=== PATIENT | male | born 1990 | race Caucasian/White ===

== ENCOUNTER 2017-02-22 16:58 | Emergency (ER) | payer SELFPAY ==
[2017-02-22 17:12] VITALS: BP 109/70; PULSE 80; RESP 16; TEMP 98.3; O2SAT 98; BMI 33.7
--- NOTE | 2017-02-22 17:12 | ED PDOC ---
Arrival/HPI - General Time Seen by Provider: 02/22/17 17:04 Historian: Patient - History of Present Illness Narrative History of Present Illness (Text): 02/22/17 17:08 26yo male present with history of left sided upper toothache. States tooth cracked a month ago and became painful recently. He did not take any medication for pain. denies ay other complaint. Past Medical History - Provider Review Nursing Documentation Reviewed: Yes - Tetanus Immunization Tetanus Immunization: Unknown - Reproductive Currently : No - Endocrine/Metabolic Hx Diabetes Mellitus Type 2: Yes - Musculoskeletal/Rheumatological Hx Falls: No - Psychiatric Hx Substance Use: No - Past Surgical History Past Surgical History: No Previous - Anesthesia Hx Anesthesia: Yes - Suicidal Assessment Feels Threatened In Home Enviroment: No Family/Social History - Physician Review Nursing Documentation Reviewed: Yes Family/Social History: Unknown Family HX Smoking Status: Never Smoked Hx Alcohol Use: No Hx Substance Use: No Hx Substance Use Treatment: No Allergies/Home Meds Allergies/Adverse Reactions: Allergies No Known Allergies Allergy (Verified 02/22/17 17:09) Home Medications: Home Meds Medication Instructions Recorded Confirmed Insulin Aspart, Recombinant 20 unit SC TID 12/17/15 12/17/15 [Novolog] Insulin Glargine, Recombina 65 unit SC DAILY 12/17/15 12/17/15 [Lantus] Penicillin VK [Penicillin VK Tab] 1 tab PO QID 12/17/15 12/17/15 oxyCODONE/Acetaminophen [Percocet 1 tab PO Q8 PRN 12/17/15 12/17/15 5/325 mg Tab] Review of Systems - Physician Review All systems were reviewed & negative as marked: Yes - Review of Systems Constitutional: Normal Eyes: Normal ENT: Other (Toothache) Respiratory: Normal Cardiovascular: Normal Gastrointestinal: Normal Genitourinary Male: Normal Musculoskeletal: Normal Skin: Normal Neurological: Normal Endocrine: Normal Hemo/Lymphatic: Normal Psychiatric: Normal Physical Exam Vital Signs Reviewed: Yes Vital Signs Temp Pulse Resp BP Pulse Ox 02/22/17 17:08 98.3 F 80 16 109/70 98 Temperature: Afebrile Blood Pressure: Normal Pulse: Regular Respiratory Rate: Normal Appearance: Positive for: Well-Appearing, Non-Toxic, Comfortable Pain Distress: None Mental Status: Positive for: Alert and Oriented X 3 - Systems Exam Head: Present: Atraumatic, Normocephalic Pupils: Present: PERRL Extroacular Muscles: Present: EOMI Conjunctiva: Present: Normal Mouth: Present: Moist Mucous Membranes. No: Normal Teeth (2 cracked left upper premolar noted. No gingival swelling.) Neck: Present: Normal Range of Motion Respiratory/Chest: Present: Clear to Auscultation, Good Air Exchange. No: Respiratory Distress, Accessory Muscle Use Cardiovascular: Present: Regular Rate and Rhythm, Normal S1, S2. No: Murmurs Abdomen: Present: Normal Bowel Sounds. No: Tenderness, Distention, Peritoneal Signs Back: Present: Normal Inspection Upper Extremity: Present: Normal Inspection. No: Cyanosis, Edema Lower Extremity: Present: Normal Inspection. No: Edema Neurological: Present: GCS=15, CN II-XII Intact, Speech Normal Skin: Present: Warm, Dry, Normal Color. No: Rashes Psychiatric: Present: Alert, Oriented x 3, Normal Insight, Normal Concentration Disposition/Present on Arrival - Present on Arrival Any Indicators Present on Arrival: No History of DVT/PE: No History of Uncontrolled Diabetes: Yes Urinary Catheter: No History Surgical Site Infection Following: None - Disposition Have Diagnosis and Disposition been Completed?: Yes Diagnosis: Pain, dental Disposition: HOME/ ROUTINE Disposition Time: 17:25 Patient Plan: Discharge Condition: STABLE Discharge Instructions (ExitCare): Dental Caries (ED) Additional Instructions: Follow up with a Dentist Return to ED for any new or worsening symptoms Prescriptions: Amoxicillin 500 mg PO TID #21 tab traMADol [Ultram] 50 mg PO TID #9 tab Referrals: Gilmar Jalloh DMD [Staff Provider] - Follow up with primary
== END 2017-02-22 17:33 | disposition home or self-care (01) ==
LOC: ED 16:58
DX: K08.89 Other specified disorders of teeth and supporting structures (principal)

== ENCOUNTER 2017-06-20 15:52 | Emergency (ER) | payer SELFPAY ==
[2017-06-20 15:59] VITALS: BMI 34.4
[2017-06-20 16:03] VITALS: BP 138/89; PULSE 81; RESP 19; TEMP 98.7; O2SAT 98
--- NOTE | 2017-06-20 16:58 | ED PDOC ---
Arrival/HPI - General Chief Complaint: Dental Pain Time Seen by Provider: 06/20/17 16:45 Historian: Patient - History of Present Illness Narrative History of Present Illness (Text): 06/20/17 16:59 26-year-old male presents today with left upper dental pain and swelling 1 day. Patient states he had an old fracture to the left upper molar and over the past 2 days he's had worsening pain. Patient states when he woke up this morning he noticed swelling to the cheek. He denies fevers or chills. Denies trismus or drooling. Took Tylenol for pain at home without improvement in his symptoms. Denies headache dizziness or weakness. No other complaints. Time/Duration: Other (1 day) Symptom Onset: Gradual Quality: Aching, Throbbing Severity Level: 5 Past Medical History - Provider Review Nursing Documentation Reviewed: Yes - Travel History Have you recently traveled outside [place] w/in the past 3 mons?: No - Infectious Disease Hx of Infectious Diseases: None - Tetanus Immunization Tetanus Immunization: Unknown - Reproductive Currently : No - Cardiac Hx Cardiac Disorders: No - Pulmonary Hx Respiratory Disorders: No - Neurological Hx Neurological Disorder: No - HEENT Hx HEENT Disorder: No - Renal Hx Renal Disorder: No - Endocrine/Metabolic Hx Endocrine Disorders: Yes Hx Diabetes Mellitus Type 1: Yes - Hematological/Oncological Hx Blood Disorders: No - Integumentary Hx Dermatological Disorder: No - Musculoskeletal/Rheumatological Hx Falls: No - Gastrointestinal Hx Gastrointestinal Disorders: No - Genitourinary/Gynecological Hx Genitourinary Disorders: No - Psychiatric Hx Psychophysiologic Disorder: No Hx Depression: No Hx Emotional Abuse: No Hx Physical Abuse: No Hx Substance Use: No - Past Surgical History Past Surgical History: No Previous - Anesthesia Hx Anesthesia: No - Suicidal Assessment Feels Threatened In Home Enviroment: No Family/Social History - Physician Review Nursing Documentation Reviewed: Yes Family/Social History: Unknown Family HX Smoking Status: Never Smoked Hx Alcohol Use: No Hx Substance Use: No Hx Substance Use Treatment: No Allergies/Home Meds Allergies/Adverse Reactions: Allergies No Known Allergies Allergy (Verified 06/20/17 15:59) Home Medications: Home Meds Medication Instructions Recorded Confirmed Insulin Aspart, Recombinant 20 unit SC TID 12/17/15 06/20/17 [Novolog] Insulin Glargine, Recombina 65 unit SC DAILY 12/17/15 06/20/17 [Lantus] Review of Systems - Review of Systems Constitutional: absent: Fatigue, Fevers ENT: Other (left upper molar pain). absent: Sinus Congestion Respiratory: absent: SOB, Cough Cardiovascular: absent: Chest Pain, Palpitations Gastrointestinal: absent: Abdominal Pain, Vomiting Genitourinary Male: absent: Dysuria Musculoskeletal: Arthralgias (dental pain). absent: Back Pain, Neck Pain Skin: absent: Rash, Pruritis Neurological: absent: Headache, Dizziness Psychiatric: absent: Anxiety, Depression Physical Exam Vital Signs Reviewed: Yes Vital Signs Temp Pulse Resp BP Pulse Ox 06/20/17 16:02 98.7 F 81 19 138/89 98 Temperature: Afebrile Blood Pressure: Normal Pulse: Regular Respiratory Rate: Normal Appearance: Positive for: Well-Appearing, Non-Toxic, Comfortable Pain Distress: None Mental Status: Positive for: Alert and Oriented X 3 - Systems Exam Head: Present: Atraumatic, Swelling (+ minimal swelling to left cheek; ) Pupils: Present: PERRL Extroacular Muscles: Present: EOMI Conjunctiva: Present: Normal Ears: Present: Normal, NORMAL TM Mouth: Present: Moist Mucous Membranes, Normal Lips, Normal Tounge. No: Drooling, Trismus, Normal Teeth (+ dental fracture left upper molar; + tenderness and erythema noted to gingiva of left upper molar. ) Pharnyx: Present: Normal. No: ERYTHEMA, EXUDATE Nose (External): Present: Atraumatic Nose (Internal): Present: Normal Inspection Neck: Present: Normal Range of Motion, Trachea Midline. No: Lymphadenopathy Respiratory/Chest: Present: Clear to Auscultation, Good Air Exchange. No: Respiratory Distress, Accessory Muscle Use Cardiovascular: Present: Regular Rate and Rhythm, Normal S1, S2. No: Murmurs Medical Decision Making ED Course and Treatment: 06/20/17 17:03 Patient is nontoxic well-appearing in no distress with stable vital signs. afebrile. No trismus or drooling, moist mucous membranes clindamycin Toradol tramadol Patient reassessment: Patient is feeling better after medications. I advised follow-up with the dentist within the next 2 days. I advised immediate return is symptoms worsen persist or if new concerning symptoms develop. stressed importance of close follow-up with primary care physician and the dentist. I've advised the patient to return immediately if he develops high fevers or worsening pain, worsening swelling, trismus or drooling. Patient verbalizes understanding of discharge instructions and need for immediate followup. Impression: Toothache, dental abscess Motrin every 6 hours as needed for pain tramadol: 1 tablet every 6 hours as needed for moderate to severe pain; may cause drowsiness Clindamycin 1 tablet 3 times daily x 10 days Follow-up with the dentist within the next 2 days Follow up with the primary care physician within the next 2 days. Return immediately if symptoms worsen persist or if new concerning symptoms develop [facility] [address] [place] [address] [place] [address] [phone] - Medication Orders Current Medication Orders: Clindamycin HCl (Cleocin) 300 mg PO STAT STA PRN Reason: Protocol Stop: 06/20/17 16:46 Ketorolac Tromethamine (Toradol) 60 mg IM STAT STA Stop: 06/20/17 16:46 Tramadol HCl (Ultram) 50 mg PO STAT STA Stop: 06/20/17 16:46 Disposition/Present on Arrival - Present on Arrival Any Indicators Present on Arrival: Yes History of DVT/PE: Yes History of Uncontrolled Diabetes: No Urinary Catheter: No History of Decub. Ulcer: No History Surgical Site Infection Following: None - Disposition Have Diagnosis and Disposition been Completed?: Yes Diagnosis: Dental abscess, Toothache Disposition: HOME/ ROUTINE Disposition Time: 16:55 Patient Plan: Discharge Condition: GOOD Discharge Instructions (ExitCare): Dental Abscess (ED) Additional Instructions: Motrin every 6 hours as needed for pain tramadol: 1 tablet every 6 hours as needed for moderate to severe pain; may cause drowsiness Clindamycin 1 tablet 3 times daily x 10 days Follow-up with the dentist within the next 2 days Follow up with the primary care physician within the next 2 days. Return immediately if symptoms worsen persist or if new concerning symptoms develop [facility] [address] [place] [address] [place] [address] [phone] Prescriptions: Clindamycin [Cleocin] 300 mg PO TID #21 cap Ibuprofen [Motrin] 600 mg PO Q6H PRN #20 tab PRN Reason: pain/fever reduction traMADol [Ultram] 50 mg PO Q6H PRN #6 tab PRN Reason: moderate to severe pain Referrals: Romero Jalloh MD [Medical Doctor] - Follow up with primary Rohan Rodriges DMD [Staff Provider] - Follow up with primary Kenny Holloway DO [Staff Provider] - Follow up with primary Forms: [employer] (Irish), WORK NOTE
== END 2017-06-20 17:16 | disposition home or self-care (01) ==
LOC: ED 15:52
DX: K04.7 Periapical abscess without sinus (principal); K08.89 Other specified disorders of teeth and supporting structures
CPT/HCPCS: 96372; 99282; J1885